=== PATIENT | female | born 1950 | race Caucasian/White ===

== ENCOUNTER → 2017-09-26 15:16 | Outpatient (CLI) | payer MEDICARE ==
[2011-09-05 09:26] VITALS: BMI 38.9
== END | disposition home or self-care (01) ==
LOC: D.CT 15:16
DX: I73.9 Peripheral vascular disease, unspecified (principal)

== ENCOUNTER 2018-06-23 16:28 | Emergency (ER) | payer MEDICARE ==
[~2018-06-23] VITALS: Ht 162.6 cm; Wt 109.1 kg
[2018-06-23 16:45] VITALS: Ht 162.6 cm; Wt 109.1 kg
[2018-06-23 17:18] LABS: BASOPHILS 0.3 % (0-2); EOSINOPHILS 0.9 % (0-7); HEMATOCRIT 37.5 % (36.0-48.0); HEMOGLOBIN 11.9 g/dL (12-16); IMMATURE GRANULOCYTES 0.2 % (0-5); LYMPHOCYTES 16.9 % (15-50); MCH 26.2 pg (26.0-34.0); MCHC 31.7 g/dL (31.0-37.0); MCV 82.6 fL (80.0-100.0); MEAN PLATELET VOLUME 9.5 fL (7.4-10.4); NEUTROPHILS 77.7 % (40-80); PLATELET COUNT 239 10x3/uL (130-400); RBC 4.54 10x6/uL (4.00-5.40); RDW 15.4 % (11.5-14.5); WBC 9.6 10x3/uL (4.8-10.8)
[2018-06-23 17:28] LABS: ALBUMIN 3.2 g/dL (3.4-5.0); BILIRUBIN - TOTAL 0.24 mg/dL (0.2-1.3); CALCIUM 7.8 mg/dL (8.5-10.1); CARBON DIOXIDE 24.7 mmol/L (21.0-32.0); CREATININE - SERUM 1.1 mg/dL (0.6-1.3); POTASSIUM - SERUM 3.7 mmol/L (3.5-5.1); PROTEIN - SERUM 7.4 g/dL (6.4-8.2)
[2018-06-23] MEDS ORDERED: VOLTAREN75 MG PO (19:30)
[2018-06-23] MEDS ORDERED: BACLOFEN20 M1 PO (19:30)
[2018-06-23 19:45] VITALS: BP 158/80
== END 2018-06-23 19:45 | disposition home or self-care (01) ==
LOC: D.ER 16:28
PROVIDERS: Family Medicine
DX: S16.1XXA Strain of muscle, fascia and tendon at neck level, initial encounter (principal); V49.9XXA Car occupant (driver) (passenger) injured in unspecified traffic accident, initial encounter; Y93.89 Activity, other specified; Y92.410 Unspecified street and highway as the place of occurrence of the external cause; S89.91XA Unspecified injury of right lower leg, initial encounter; R07.9 Chest pain, unspecified; G14 Postpolio syndrome; I10 Essential (primary) hypertension

== ENCOUNTER 2018-06-25 18:00 | Inpatient (IN) | payer MEDICARE ==
[~2018-06-25] VITALS: Ht 162.6 cm; Wt 118.2 kg
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
[~2018-06-25 18:00] MED LIST: BACLOFEN20 M1 PO; VOLTAREN75 MG PO
[2018-06-25] MEDS ORDERED: CARDIZEM CD240 MG PO (18:31)
[2018-06-25] MEDS ORDERED: TYLENOL W/CODEI1 TAB PO (18:31)
[2018-06-25] MEDS ORDERED: ZANAFLEX4 MG PO (18:32)
[2018-06-25] MEDS ORDERED: LEVOXYL150 MCG PO (18:33)
[2018-06-25] MEDS ORDERED: KLOR-CON 1010 MEQ PO (18:33)
[2018-06-25] MEDS ORDERED: FUROSEMIDE40 MG PO (18:33)
[2018-06-25] MEDS ORDERED: CRESTOR5 MG PO (18:34)
[2018-06-25] MEDS ORDERED: TRAZODONE HCL150 MG PO (18:34)
[2018-06-25] MEDS ORDERED: VITAMIN D250000 UNIT PO (18:35)
[2018-06-25] MEDS ORDERED: ZOLOFT25 MG (18:35)
[2018-06-25] MEDS ORDERED: PREMARIN0.625 MG PO (18:36)
[2018-06-25] MEDS ORDERED: PROVERA2.5 MG PO (18:36)
[2018-06-25 19:07] LABS: BASOPHILS 0.2 % (0-2); EOSINOPHILS 0.1 % (0-7); HEMATOCRIT 34.1 % (36.0-48.0); HEMOGLOBIN 10.9 g/dL (12-16); IMMATURE GRANULOCYTES 0.1 % (0-5); LYMPHOCYTES 8.5 % (15-50); MCH 26.4 pg (26.0-34.0); MCV 82.6 fL (80.0-100.0); MEAN PLATELET VOLUME 9.5 fL (7.4-10.4); MONOCYTES 4.2 % (2-11); NEUTROPHILS 86.9 % (40-80); PLATELET COUNT 233 10x3/uL (130-400); RBC 4.13 10x6/uL (4.00-5.40); RDW 15.3 % (11.5-14.5); WBC 10.4 10x3/uL (4.8-10.8)
[2018-06-25 19:21] LABS: ANION GAP 12.9 mmol/L (8-16); BILIRUBIN - TOTAL 0.34 mg/dL (0.2-1.3); CALCIUM 8.2 mg/dL (8.5-10.1); CARBON DIOXIDE 26.5 mmol/L (21.0-32.0); POTASSIUM - SERUM 3.4 mmol/L (3.5-5.1); PROTEIN - SERUM 7.1 g/dL (6.4-8.2)
[2018-06-25 20:00] VITALS: BP 132/83
[2018-06-25 20:11] LABS: APPEARANCE CLEAR (CLEAR); COLOR YELLOW (YELLOW); SPECIFIC GRAVITY 1.015 (1.005-1.020)
[2018-06-25 20:12] LABS: BILIRUBIN NEGATIVE (NEGATIVE); EPITHELIAL CELLS RARE /hpf (0-5); GLUCOSE NEGATIVE (NEGATIVE); KETONE NEGATIVE (NEGATIVE); NITRITE NEGATIVE (NEGATIVE); PROTEIN NEGATIVE (NEGATIVE); RED CELLS - URINE RARE /hpf (0-5); UDS - AMPHET NEGATIVE QUAL (NEGATIVE); UDS - BARB NEGATIVE QUAL (NEGATIVE); UDS - BENZO NEGATIVE QUAL (NEGATIVE); UDS - COCAINE NEGATIVE QUAL (NEGATIVE); UDS - OPIATE POSITIVE QUAL (NEGATIVE); UDS - PCP NEGATIVE QUAL (NEGATIVE); UDS - THC NEGATIVE QUAL (NEGATIVE); UROBILINOGEN NORMAL (NORMAL); WHITE CELLS - URINE NSEEN /hpf (0-5)
[2018-06-25 20:58] VITALS: BP 136/65
[2018-06-25 22:24] VITALS: BP 169/77
[2018-06-25 23:25] VITALS: BP 134/92
[2018-06-26 02:10] VITALS: BP 162/64; Ht 162.6 cm; Wt 118.2 kg
[2018-06-26 04:00] VITALS: BP 123/52
[2018-06-26 05:49] LABS: BASOPHILS 0.3 % (0-2); EOSINOPHILS 1.1 % (0-7); HEMATOCRIT 36.3 % (36.0-48.0); HEMOGLOBIN 11.5 g/dL (12-16); IMMATURE GRANULOCYTES 0.2 % (0-5); LYMPHOCYTES 19.3 % (15-50); MCH 26.3 pg (26.0-34.0); MCHC 31.7 g/dL (31.0-37.0); MCV 82.9 fL (80.0-100.0); MEAN PLATELET VOLUME 10.1 fL (7.4-10.4); MONOCYTES 5.4 % (2-11); NEUTROPHILS 73.7 % (40-80); PLATELET COUNT 271 10x3/uL (130-400); RBC 4.38 10x6/uL (4.00-5.40); RDW 15.4 % (11.5-14.5); WBC 9.9 10x3/uL (4.8-10.8)
[2018-06-26 06:01] LABS: ANION GAP 11.5 mmol/L (8-16); CALCIUM 8.5 mg/dL (8.5-10.1); CARBON DIOXIDE 29.6 mmol/L (21.0-32.0); POTASSIUM - SERUM 3.1 mmol/L (3.5-5.1)
[2018-06-26 08:34] VITALS: BP 139/57
[2018-06-26 12:22] VITALS: BP 144/49
[2018-06-26 16:35] VITALS: BP 164/52
[2018-06-26 21:16] VITALS: BP 138/60
[2018-06-27 06:40] LABS: BASOPHILS 0.4 % (0-2); EOSINOPHILS 3.6 % (0-7); HEMATOCRIT 37.2 % (36.0-48.0); HEMOGLOBIN 11.7 g/dL (12-16); IMMATURE GRANULOCYTES 0.3 % (0-5); LYMPHOCYTES 37.2 % (15-50); MCH 26.4 pg (26.0-34.0); MCHC 31.5 g/dL (31.0-37.0); MCV 83.8 fL (80.0-100.0); MEAN PLATELET VOLUME 9.6 fL (7.4-10.4); MONOCYTES 7.8 % (2-11); NEUTROPHILS 50.7 % (40-80); PLATELET COUNT 283 10x3/uL (130-400); RBC 4.44 10x6/uL (4.00-5.40); RDW 15.6 % (11.5-14.5)
[2018-06-27 06:47] LABS: WBC 7.4 10x3/uL (4.8-10.8)
[2018-06-27 07:04] LABS: ANION GAP 12.4 mmol/L (8-16); CALCIUM 8.1 mg/dL (8.5-10.1); CREATININE - SERUM 1.1 mg/dL (0.6-1.3); POTASSIUM - SERUM 3.4 mmol/L (3.5-5.1)
[2018-06-27 08:43] VITALS: BP 144/69
== END 2018-06-27 11:30 | disposition home or self-care (01) | DRG 93 ==
LOC: D.ER 18:00 → D.MS 23:51 → OBSVTIME 23:51 → D.MS 06-26 16:14
PROVIDERS: Family Medicine; Internal Medicine Nephrology
DX: G92 Toxic encephalopathy (principal); T42.8X5A Adverse effect of antiparkinsonism drugs and other central muscle-tone depressants, initial encounter; D50.9 Iron deficiency anemia, unspecified; I10 Essential (primary) hypertension; G89.4 Chronic pain syndrome; E87.6 Hypokalemia; R40.2353 Coma scale, best motor response, localizes pain, at hospital admission; R40.2143 Coma scale, eyes open, spontaneous, at hospital admission; R40.2243 Coma scale, best verbal response, confused conversation, at hospital admission